=== PATIENT | male | born 1980 | race Caucasian/White ===

== ENCOUNTER → 2018-09-14 09:42 | Outpatient (CLI) | payer OTHER, SELFPAY ==
[2018-09-14 11:01] LABS: Alanine Aminotransferase 57 IU/L (21-72); Albumin 4.7 g/dL (3.5-5.0); Albumin Globulin Ratio 1.7 (1.0-2.8); Alkaline Phosphatase 53 U/L (38-126); Aspartate Aminotransferase 37 IU/L (17-59); BUN Creatinine Ratio 18.9 (6-22); Blood Urea Nitrogen 17 mg/dL (9-20); Calcium 9.3 mg/dL (8.4-10.2); Carbon Dioxide 27 mmol/L (22-32); Chloride 103 mmol/L (98-107); Cholesterol 228 mg/dL (140-199); Estimated Glomerular Filt Rate > 60.0 mL/min (>60); Globulin 2.7 g/dL (1.7-4.1); Glucose 86 mg/dL (70-100); HDL Cholesterol 54 mg/dL (40-60); HEMOLYSIS < 15 (0-50); LDL Cholesterol Calculated 148 mg/dL (<100); Potassium 4.1 mmol/L (3.4-5.1); Sodium 139 mmol/L (137-145); Total Protein 7.4 g/dL (6.3-8.2); Triglycerides 131 mg/dL (35-150)
== END ==
PROVIDERS: PCP Internal Medicine; Visit Provider Internal Medicine
DX: Z13.1 Encounter for screening for diabetes mellitus (principal); Z13.6 Encounter for screening for cardiovascular disorders
CPT/HCPCS: 36415; 80053; 80061

== ENCOUNTER → 2020-12-06 17:29 | Outpatient (CLI) | payer OTHER, SELFPAY | PROVIDERS: PCP Internal Medicine; Visit Provider Physician Assistant | DX: R23.8 Other skin changes (principal) | CPT/HCPCS: 87070; 87075; 87205 ==

== ENCOUNTER 2020-12-11 20:18 | Emergency (ER) | payer OTHER, SELFPAY ==
[2020-12-11 20:25] VITALS: BP 179/124; PULSE 84; RESP 15; TEMP 36.7; O2SAT 97; BMI 33.2
--- NOTE | 2020-12-11 23:20 | ED.SKABFB ---
HPI - Skin/Abscess/Foreign Bdy General Chief complaint: Skin/Abscess/Foreign Body Stated complaint: strange wounds, rash Time Seen by Provider: 12/11/20 23:05 Source: patient Mode of arrival: Ambulatory Limitations: no limitations History of Present Illness HPI narrative: Patient is a 40-year-old male who several weeks ago developed rash on his arms. He was seen at the walk-in clinic and was given topical steroids he has also seen Dermatology and he has been continuing the steroids. He feels like the rash on his arms developed blisters but those have since improved. Now over the past 24 hours he has developed hives on his lower extremities and upper extremities. No problems breathing. No vomiting. No new exposures. Related Data Home Medications Medication Instructions Recorded Confirmed loratadine-pseudoephedrine ER 10 1 tab PO DAILY PRN 08/04/18 12/06/20 mg-240 mg tablet,extended [id number] (Claritin-D 24 Hour) Previous Rx's Medication Instructions Recorded prednisone 20 mg tablet 20 mg PO DAILY 5 Days #5 tab 12/11/20 Allergies Allergy/AdvReac Type Severity Reaction Status Date / Time No Known Drug Allergies Allergy Verified 12/11/20 20:25 Review of Systems Constitutional Constitutional: Denies fever(s) Cardiovascular Cardiovascular: Denies chest pain and Denies dyspnea Respiratory Respiratory: Denies dyspnea Gastrointestinal Comments: No abdominal pain or vomiting Musculoskeletal Comments: No joint pain Integumentary/Breasts Skin/Breast: Reports as per HPI and Reports rash Neurologic Neurologic: Reports system reviewed and no additional complaints, except as documented Hematologic/Lymphatic On Anticoagulants: No Patient History Medical History Rash Surgical History (Updated 12/25/18 @ 07:50 by Melissa Funes) Anesthesia History of ear surgery (~2004) History of surgery (~1992) S/P hernia surgery (~1990) Family History (Updated 12/25/18 @ 07:51 by Melissa Funes) Grandmother Lung cancer Diabetes mellitus Father Liver cancer Mother No problems noted. Social History Smoking Status: Never smoker Smoking Status: Never smoker alcohol intake frequency: 3 or more drinks per day Substance Use Type: does not use Exam Initial Vital Signs Initial Vital Signs: Vital Signs Temperature 98.0 F 12/11/20 20:25 Pulse Rate 84 12/11/20 20:25 Respiratory Rate 15 12/11/20 20:25 Blood Pressure 179/124 H 12/11/20 20:25 Pulse Oximetry 97 12/11/20 20:25 Const General: cooperative and comfortable HENMT Head: normal to inspection and normocephalic Resp Effort & Inspection: normal respiratory effort Auscultation: clear to auscultation bilaterally Cardio Rate: regular rate Rhythm: regular rhythm Skin Other: Patient has a well-circumscribed deep red lesion in his left AC that appears to have had blisters at 1 point that are now opened. There is no surrounding erythema. He has small areas that are very similar in his right AC region. He then has diffuse urticaria Neuro General: patient alert, patient awake and patient oriented x3 Extrem General: normal to inspection and capillary refill normal Psych Appearance: grossly normal and well kempt Course Orders Ordered: Discontinued Medications Prednisone (Prednisone 20 Mg Tablet) 20 mg PO NOW ONE Stop: 12/11/20 23:30 Last Admin: 12/11/20 23:36 Dose: 20 mg Documented by: CLEMENTE Vital Signs Vital signs: Vital Signs - 8 hr 12/11/20 23:45 Pulse Rate 77 Respiratory Rate 15 Blood Pressure 153/107 H Pulse Oximetry 100 MDM - Skin/Abscess/Foreign Bdy MDM Narrative Medical decision making narrative: Unsure the exact etiology of the patient's symptoms but he does not have anaphylaxis. We did not know any new exposures. The plan will be is to start him on oral steroids. He has already seen dermatology and I recommended that he follow up with them again. He was given strict return precautions and follow-up instructions. He expressed understanding and agreement. Discharge Plan Departure Patient Disposition: Home Clinical Impression: Rash Instructions: DI for Rash Activity Restrictions/Additional Instructions: I do recommend that you stop using the topical steroid. Start doing the oral steroid as directed. I also recommend you contact the jumpbasting machine operator tomorrow to schedule a follow-up appointment. Return to the emergency department for any new or worsening symptoms Prescriptions: New prednisone 20 mg tablet 20 mg PO DAILY 5 Days Qty: 5 RF: 0 No Action loratadine-pseudoephedrine [Claritin-D 24 Hour] 10-240 mg tablet extended release 24 hr 1 tab PO DAILY PRN (Reason: allergy symptoms) RF: 0 Referrals: Otilio Miller MD [Primary Care Provider] -
--- NOTE | 2020-12-11 23:31 | PC.NURSE ---
Patient started with bilateral anticubital burning and redness over the weekend. Saw dermatology and treated for potential burn. Patient had blisters noted to both inner elbows which have since popped. Tonight patient broke out in hives to bilateral lower extermities, back, arms neck and chest. Took oral benadryl prior to arrival which has helped with hives. Patient denies SOB, speaking in complete sentences with no respiratory distress.
[2020-12-11] MEDS: predniSONE 20 MG TABLET PO (23:36)
[2020-12-11 23:45] VITALS: BP 153/107; PULSE 77; RESP 15; O2SAT 100
== END 2020-12-11 23:46 | disposition home or self-care (01) ==
PROVIDERS: Emergency Provider Emergency Medicine; PCP Internal Medicine
DX: R21 Rash and other nonspecific skin eruption (principal)
CPT/HCPCS: 99283